=== PATIENT | female | born 1985 | race Asian ===

== ENCOUNTER 2024-12-21 08:06 | Emergency (ER) | payer MEDICAID ==
[2024-12-21 10:18] LABS: CORONAVIRUS COVID-19 NAA NEGATIVE (NEGATIVE); INFLUENZA A NAA NEGATIVE (NEGATIVE); RESPIRATORY SYNCYTIAL VIR NAA NEGATIVE (NEGATIVE)
== END 2024-12-21 10:47 | disposition home or self-care (01) ==
LOC: JD.ED 08:06
DX: J02.0 Streptococcal pharyngitis (principal); Z90.49 Acquired absence of other specified parts of digestive tract
CPT/HCPCS: 0241U; 87651; 99283